=== PATIENT | male | born 1940 | race African-American/Black ===

== ENCOUNTER 2024-12-27 10:53 | Inpatient (IN) | payer MEDICARE, MEDICAID ==
[~2024-12-27] VITALS: Ht 170.2 cm; Wt 57.2 kg
[2024-12-27 10:57] VITALS: O2SAT 100
[2024-12-27] MEDS: ONDANSETRON 4MG ODT PO ONE (12:46)
[2024-12-27] MEDS: FAMOTIDINE 20MG TABLET PO ONE (12:46)
[2024-12-27] MEDS: HYDROCODONE/ACETAMINOPHEN 5/325MG TABLET PO ONE (12:46)
[2024-12-27 13:26] LABS: BASOPHILS % 0.2 % (0.0-2.0); EOSINOPHILS % 0.1 % (0.0-5.0); HEMATOCRIT. 50.8 % (42.0-52.0); HEMOGLOBIN. 16.3 g/dL (14.0-18.0); LYMPHOCYTES % 9.0 % (20.0-50.0); MEAN PLATELET VOLUME 9.0 fl (7.4-10.4); MONOCYTES % 8.9 % (2.0-8.0); NEUTROPHILS % 81.8 % (40.0-76.0); PLATELET 241 x1000/uL (130-400); RED BLOOD CELL COUNT 5.96 mill/uL (4.7-6.1); RED CELL DISTRIBUTION WIDTH 14.7 % (11.6-14.6)
[2024-12-27 13:39] LABS: INR 1.0
[2024-12-27 13:41] LABS: TROPONIN I HIGH SENSITIVITY 39 ng/L (3.0-53)
[2024-12-27 13:43] LABS: CREATININE 1.5 mg/dL (0.6-1.3)
[2024-12-27 13:44] LABS: UREA NITROGEN BLOOD 19 mg/dL (9-23)
[2024-12-27 13:45] LABS: ASPARTATE AMINOTRANSFERASE 19 IU/L (<34)
[2024-12-27 13:46] LABS: BILIRUBIN DIRECT 0.2 mg/dL (<=3.0); BILIRUBIN TOTAL 0.6 mg/dL (0.1-1.0); PROTEIN TOTAL 8.2 g/dL (6.0-8.3)
[2024-12-27] MEDS: SODIUM CHLORIDE 0.9% 1,000 ML IV ONE (14:15)
[2024-12-27 15:05] LABS: CLARITY URINE CLEAR (CLEAR); COLOR URINE YELLOW (YELLOW); GLUCOSE URINE NEGATIVE (NEGATIVE); KETONES URINE NEGATIVE (NEGATIVE); LEUKOCYTE ESTERASE URINE TRACE (NEGATIVE); NITRITE URINE NEGATIVE (NEGATIVE); OCCULT BLOOD URINE NEGATIVE (NEGATIVE); PH URINE 6.0 (4.5-8.0); PROTEIN URINE 1+ (NEGATIVE); SPECIFIC GRAVITY URINE 1.022 (1.005-1.030); UROBILINOGEN URINE 1.0 E.U./dL (0.2-1.0)
[2024-12-27 15:21] LABS: *AMPHETAMINES SCREEN URINE NEGATIVE (NEGATIVE); *BARBITURATES SCREEN URINE NEGATIVE (NEGATIVE); *BENZODIAZEPINES SCREEN URINE NEGATIVE (NEGATIVE); *COCAINE SCREEN URINE NEGATIVE (NEGATIVE)
[2024-12-27 15:22] LABS: CANNABINOID URINE SCREEN NEGATIVE (NEGATIVE); ECSTASY MDMA SCREEN URINE NEGATIVE (NEGATIVE); METHADONE URINE SCREEN NEGATIVE (NEGATIVE); OPIATES URINE SCREEN NEGATIVE (NEGATIVE); PHENCYCLIDINE URINE SCREEN NEGATIVE (NEGATIVE)
[2024-12-27 15:37] LABS: BACTERIA URINE NONE SEEN; HYALINE CASTS URINE 0-5 /lpf; MUCUS URINE TRACE /lpf (NONE/TRACE); RBC URINE NONE SEEN /hpf (0-2); SQUAMOUS EPITHELIAL CELL URINE RARE /lpf (RARE/1+)
[2024-12-27 20:00] VITALS: BP 145/91; PULSE 59; RESP 19; TEMP 36.2; O2SAT 97
[2024-12-27] MEDS ORDERED: IPRATROPIUM/ALBUTEROL 0.5-3(2.5)MG/3ML NEB HHN PRN (20:00)
[2024-12-27] MEDS ORDERED: DOCUSATE SODIUM 100MG CAPSULE PO PRN (20:00)
[2024-12-27] MEDS ORDERED: ACETAMINOPHEN 325MG TABLET PO PRN (20:00)
[2024-12-27] MEDS: SODIUM CHLORIDE 0.9% 1,000 ML IV SCH (21:40)
[2024-12-27] MEDS: ACETAMINOPHEN 325MG TABLET PO PRN (21:46)
[2024-12-27 22:00] VITALS: BP 145/91; PULSE 59; RESP 19; TEMP 36.1956
[2024-12-28] VITALS: BP 127/75; PULSE 59; RESP 19; TEMP 36.1; O2SAT 100
[2024-12-28 04:00] VITALS: BP 97/61; PULSE 52; RESP 19; TEMP 36.5; O2SAT 100
[2024-12-28 07:02] LABS: CREATININE 1.4 mg/dL (0.6-1.3)
[2024-12-28 07:03] LABS: UREA NITROGEN BLOOD 25.0 mg/dL (9-23)
[2024-12-28 07:06] LABS: BASOPHILS % 0.5 % (0.0-2.0); EOSINOPHILS % 0.4 % (0.0-5.0); HEMATOCRIT. 44.2 % (42.0-52.0); HEMOGLOBIN. 14.1 g/dL (14.0-18.0); LYMPHOCYTES % 16.2 % (20.0-50.0); MEAN PLATELET VOLUME 8.8 fl (7.4-10.4); MONOCYTES % 13.9 % (2.0-8.0); NEUTROPHILS % 69.0 % (40.0-76.0); PLATELET 179 x1000/uL (130-400); RED BLOOD CELL COUNT 5.13 mill/uL (4.7-6.1); RED CELL DISTRIBUTION WIDTH 15.0 % (11.6-14.6)
[2024-12-28 08:00] VITALS: BP_SYST 123; BP_SYST 127; BP_DIAS 69; BP_DIAS 71; PULSE 51; PULSE 52; RESP 18; TEMP 36.1; O2SAT 98
[2024-12-28] MEDS: ENOXAPARIN 30MG/0.3ML SYR SUBCUT SCH (11:20)
[2024-12-28 12:00] VITALS: BP 127/71; PULSE 51; RESP 18; TEMP 36.6; O2SAT 99
[2024-12-28] MEDS ORDERED: MORPHINE SULFATE 4 MG/ML INJ (FOR IV/IM USE) IV PRN (13:30)
[2024-12-28] MEDS ORDERED: NALOXONE HCL 0.4MG/ML VIAL IV PRN (13:30)
[2024-12-28] MEDS: MORPHINE SULFATE 10 MG/ML INJ (NOT FOR IM USE) IV PRN (15:34)
[2024-12-28 16:00] VITALS: BP 135/68; PULSE 68; RESP 18; TEMP 36.4; O2SAT 95
[2024-12-28 20:00] VITALS: BP 130/81; PULSE 60; RESP 19; TEMP 37.6; O2SAT 95
[2024-12-29] VITALS: BP 128/78; PULSE 59; RESP 19; TEMP 36.7; O2SAT 95
[2024-12-29 04:00] VITALS: BP 136/79; PULSE 56; RESP 19; TEMP 36.9; O2SAT 96
[2024-12-29 07:23] LABS: CREATININE 1.1 mg/dL (0.6-1.3); UREA NITROGEN BLOOD 16 mg/dL (9-23)
[2024-12-29] MEDS ORDERED: HYDR25TA MT (07:49)
[2024-12-29] MEDS ORDERED: AMLO10TA80 MT (07:49)
[2024-12-29] MEDS ORDERED: ASPI-1497 MT (07:49)
[2024-12-29] MEDS ORDERED: TAMS-54 MT (07:49)
[2024-12-29 08:00] VITALS: BP 123/74; PULSE 51; RESP 17; TEMP 36.3; O2SAT 95
[2024-12-29] MEDS: DEXT 5%/0.9% NACL 1,000 ML IV SCH (09:13)
[2024-12-29] MEDS: TAMSULOSIN HCL 0.4MG SR CAPSULE PO SCH (10:30)
[2024-12-29] MEDS: DEXTROSE 50% WATER 50ML SYRINGE IV PRN (11:57)
[2024-12-29 12:00] VITALS: BP 135/81; PULSE 50; RESP 18; TEMP 35.8; O2SAT 98
[2024-12-29] MEDS: KCL 20MEQ/100ML PREMIX 100 ML IV SCH (13:28)
[2024-12-29 16:00] VITALS: BP 109/82; PULSE 49; RESP 16; TEMP 36; O2SAT 96
[2024-12-29 20:00] VITALS: BP 164/91; PULSE 46; RESP 17; TEMP 36.6; O2SAT 98
[2024-12-30] VITALS: BP 140/90; PULSE 66; RESP 18; TEMP 36.6; O2SAT 99
[2024-12-30 04:00] VITALS: BP 133/83; PULSE 58; RESP 18; TEMP 36.4; O2SAT 98
[2024-12-30 07:39] LABS: HEMATOCRIT. 43.0 % (42.0-52.0); HEMOGLOBIN. 13.9 g/dL (14.0-18.0); MEAN PLATELET VOLUME 8.9 fl (7.4-10.4); PLATELET 179 x1000/uL (130-400); RED BLOOD CELL COUNT 5.06 mill/uL (4.7-6.1); RED CELL DISTRIBUTION WIDTH 14.4 % (11.6-14.6)
[2024-12-30 07:52] LABS: CREATININE 1.0 mg/dL (0.6-1.3)
[2024-12-30 07:54] LABS: UREA NITROGEN BLOOD 12 mg/dL (9-23)
[2024-12-30 07:56] LABS: PHOSPHORUS 1.4 mg/dL (2.5-4.9)
[2024-12-30 08:00] VITALS: BP 125/78; PULSE 60; RESP 17; TEMP 36.2; O2SAT 96
[2024-12-30 12:00] VITALS: BP 140/103; PULSE 76; RESP 17; TEMP 36.2; O2SAT 96
[2024-12-30 16:00] VITALS: BP 142/83; PULSE 78; RESP 16; TEMP 36.2; O2SAT 95
[2024-12-30] MEDS: SODIUM CHLORIDE 0.9% 1,000 ML IV SCH (17:05)
[2024-12-30 19:21] LABS: EOSINOPHILS % MANUAL 1.0 % (0.0-5.0); LYMPHOCYTES % MANUAL 18.0 % (20.0-50.0); MONOCYTES % MANUAL 14.0 % (2.0-8.0); NEUTROPHILS % MANUAL 67.0 % (45.0-75.0); PLATELET ESTIMATE NORMAL
[2024-12-30 20:00] VITALS: BP 124/81; PULSE 83; RESP 18; TEMP 36.6; O2SAT 98
[2024-12-30] MEDS: ONDANSETRON HCL 4MG/2ML INJ IV PRN (21:43)
[2024-12-31] VITALS: BP 120/81; PULSE 88; RESP 19; TEMP 37; O2SAT 100
[2024-12-31 04:00] VITALS: BP 114/76; PULSE 109; RESP 18; TEMP 36.7; O2SAT 100
[2024-12-31 08:00] VITALS: BP 96/74; PULSE 117; RESP 16; TEMP 35.9; O2SAT 96
[2024-12-31] MEDS: LACTULOSE 20G/30ML UDC PO NR (08:58)
[2024-12-31] MEDS: SODIUM CHLORIDE 0.9% 500 ML IV ONE (14:35)
[2024-12-31] MEDS: DEXT 5%/0.45% NACL 1000ML 1,000 ML IV SCH (14:37)
[2024-12-31 15:34] LABS: BG BASE EXCESS 7.7 mmol/L (-2.0-3.0); BG CARBOXYHEMOGLOBIN 1.3 % (0.5-1.5); BG DEOXYHEMOGLOBIN 5.2 % (0.0-5.0); BG FRACTION INSPIRED OXYGEN 21; BG HCO3 ACT 30.9 mmol/L (21.0-28.0); BG METHEMOGLOBIN 0.3 % (0.5-1.5); BG OXYGEN SATURATION 94.7 % (94.0-98.0); BG OXYHEMOGLOBIN 93.2 % (94.0-98.0); BG PCO2 38.4 mmHg (35.0-48.0); BG PH 7.524 (7.350-7.450); BG PO2 70.9 mmHg (83.0-108.0); BG SAMPLE SITE LEFT BRACHIAL; BG TOTAL HEMOGLOBIN 15.8 g/dL (13.5-17.5); BG VENT MODE ROOM AIR
[2024-12-31] MEDS: MORPHINE SULFATE 10 MG/ML INJ (NOT FOR IM USE) IV PRN (15:56)
[2024-12-31] MEDS: METOCLOPRAMIDE HCL 10MG/2ML VIAL IV PRN (19:56)
[2024-12-31 20:00] VITALS: BP 117/65; PULSE 79; RESP 17; TEMP 37.3; O2SAT 97
[2024-12-31 22:25] LABS: BASOPHILS % 0.3 % (0.0-2.0); EOSINOPHILS % 0.1 % (0.0-5.0); HEMATOCRIT. 44.4 % (42.0-52.0); HEMOGLOBIN. 14.4 g/dL (14.0-18.0); LYMPHOCYTES % 10.4 % (20.0-50.0); MEAN PLATELET VOLUME 9.5 fl (7.4-10.4); MONOCYTES % 10.2 % (2.0-8.0); NEUTROPHILS % 79.0 % (40.0-76.0); PLATELET 170 x1000/uL (130-400); RED BLOOD CELL COUNT 5.23 mill/uL (4.7-6.1); RED CELL DISTRIBUTION WIDTH 14.5 % (11.6-14.6)
[2024-12-31 22:50] LABS: CREATININE 1.2 mg/dL (0.6-1.3); UREA NITROGEN BLOOD 20 mg/dL (9-23)
[2025-01-01] VITALS: BP 117/63; PULSE 78; RESP 17; TEMP 36.7; O2SAT 100
[2025-01-01 04:00] VITALS: BP 113/65; PULSE 77; RESP 17; TEMP 35.8; O2SAT 95
[2025-01-01 07:21] LABS: HEMATOCRIT. 47.0 % (42.0-52.0); HEMOGLOBIN. 15.0 g/dL (14.0-18.0); MEAN PLATELET VOLUME 9.6 fl (7.4-10.4); PLATELET 188 x1000/uL (130-400); RED BLOOD CELL COUNT 5.55 mill/uL (4.7-6.1); RED CELL DISTRIBUTION WIDTH 14.6 % (11.6-14.6)
[2025-01-01 07:35] LABS: INR 1.0
[2025-01-01 07:48] LABS: CREATININE 1.2 mg/dL (0.6-1.3); UREA NITROGEN BLOOD 22 mg/dL (9-23)
[2025-01-01 07:50] LABS: ASPARTATE AMINOTRANSFERASE 20 IU/L (<34)
[2025-01-01 07:51] LABS: BILIRUBIN DIRECT 0.3 mg/dL (<=3.0); BILIRUBIN TOTAL 0.6 mg/dL (0.1-1.0); PHOSPHORUS 2.5 mg/dL (2.5-4.9); PROTEIN TOTAL 6.3 g/dL (6.0-8.3)
[2025-01-01 08:00] VITALS: BP 126/77; PULSE 83; RESP 18; TEMP 36.5; O2SAT 95
[2025-01-01] MEDS: DIATR MEGLU/DIATRIZOATE SOLN 120ML ONE (08:54)
[2025-01-01 11:19] LABS: BAND% 6.0 % (1.0-6.0); EOSINOPHILS % MANUAL 1.0 % (0.0-5.0); LYMPHOCYTES % MANUAL 14.0 % (20.0-50.0); MONOCYTES % MANUAL 11.0 % (2.0-8.0); NEUTROPHILS % MANUAL 68.0 % (45.0-75.0)
[2025-01-01 11:20] LABS: PLATELET ESTIMATE NORMAL
[2025-01-01] MEDS: KCL 20MEQ/100ML PREMIX 100 ML IV SCH ×2 (11:30→17:09)
[2025-01-01 12:00] VITALS: BP 120/70; PULSE 80; RESP 18; TEMP 35.8; O2SAT 96
[2025-01-01 16:00] VITALS: BP 111/64; PULSE 86; RESP 18; TEMP 35.9; O2SAT 95
[2025-01-01 20:00] VITALS: BP 124/76; PULSE 78; RESP 14; TEMP 36.2; O2SAT 98
[2025-01-02] VITALS: BP 105/75; PULSE 99; RESP 16; TEMP 36.6; O2SAT 91
[2025-01-02] MEDS ORDERED: BUPIVACAINE HCL/PF 0.5% (5MG/ML) 10ML ONE (07:00)
[2025-01-02 08:00] VITALS: BP 120/75; PULSE 60; RESP 18; TEMP 36.2; O2SAT 99
[2025-01-02 08:08] LABS: HEMATOCRIT. 48.5 % (42.0-52.0); HEMOGLOBIN. 15.8 g/dL (14.0-18.0); MEAN PLATELET VOLUME 9.0 fl (7.4-10.4); PLATELET 180 x1000/uL (130-400); RED BLOOD CELL COUNT 5.67 mill/uL (4.7-6.1); RED CELL DISTRIBUTION WIDTH 14.5 % (11.6-14.6)
[2025-01-02 08:17] LABS: UREA NITROGEN BLOOD 25 mg/dL (9-23)
[2025-01-02 08:32] LABS: CREATININE 1.8 mg/dL (0.6-1.3)
[2025-01-02] MEDS ORDERED: SUCCINYLCHOLINE CHLORIDE 200MG/10ML IV ONE (10:58)
[2025-01-02] MEDS ORDERED: ROCURONIUM BROMIDE 10MG/ML VIAL 5ML IV ONE ×2 (10:58→10:59)
[2025-01-02] MEDS ORDERED: PROPOFOL 200MG/20ML VIAL IV ONE (10:59)
[2025-01-02] MEDS ORDERED: FENTANYL CITRATE/PF 50MCG/ML 2ML VIAL ONE ×2 (10:59→12:25)
[2025-01-02] MEDS ORDERED: LIDOCAINE HCL 1% 10 MG/ML 10ML VIAL ONE (11:01)
[2025-01-02] MEDS ORDERED: EPHEDRINE SULFATE 50MG/ML VIAL ONE (11:22)
[2025-01-02] MEDS ORDERED: ONDANSETRON HCL 4MG/2ML INJ IV PRN ×2 (11:30→12:45)
[2025-01-02] MEDS ORDERED: CEFAZOLIN SODIUM 1000MG/VIAL ONE (11:37)
[2025-01-02] MEDS ORDERED: DEXAMETHASONE 4MG/ML 1ML VIAL ONE (11:46)
[2025-01-02] MEDS ORDERED: ONDANSETRON HCL 4MG/2ML INJ ONE (11:46)
[2025-01-02 11:48] LABS: BAND% 7.0 % (1.0-6.0); LYMPHOCYTES % MANUAL 14.0 % (20.0-50.0); MONOCYTES % MANUAL 18.0 % (2.0-8.0); NEUTROPHILS % MANUAL 61.0 % (45.0-75.0); PLATELET ESTIMATE NORMAL
[2025-01-02] MEDS ORDERED: BUPIVACAINE HCL/PF 0.25% (2.5MG/ML) 10ML ONE (12:36)
[2025-01-02] MEDS ORDERED: FENTANYL CITRATE/PF 50MCG/ML 2ML VIAL IV PRN (12:45)
[2025-01-02] MEDS: HYDROMORPHONE HCL/PF 1MG/ML INJ IV PRN (14:56)
[2025-01-02 16:00] VITALS: BP 118/69; PULSE 63; RESP 18; TEMP 36.4; O2SAT 100
[2025-01-02] MEDS: DEXT 5%/0.45% NACL KCL 20MEQ/L 1,000 ML IV SCH (16:00)
[2025-01-02 20:00] VITALS: BP 118/77; PULSE 72; RESP 19; TEMP 36.4; O2SAT 99
[2025-01-02] MEDS: FAMOTIDINE 20MG/2ML VIAL IV SCH (20:29)
[2025-01-02] MEDS: MORPHINE SULFATE 10 MG/ML INJ (NOT FOR IM USE) IV PRN (20:42)
[2025-01-03] VITALS: BP 122/78; PULSE 83; RESP 20; TEMP 36.8; O2SAT 96
[2025-01-03 04:00] VITALS: BP 123/79; PULSE 83; RESP 19; TEMP 36.1; O2SAT 99
[2025-01-03 08:00] VITALS: BP 115/70; PULSE 79; RESP 20; TEMP 36.4; O2SAT 95
[2025-01-03 09:11] LABS: MEAN PLATELET VOLUME 10.2 fl (7.4-10.4); PLATELET 134 x1000/uL (130-400); RED BLOOD CELL COUNT 4.28 mill/uL (4.7-6.1); RED CELL DISTRIBUTION WIDTH 16.4 % (11.6-14.6)
[2025-01-03 09:18] LABS: HEMATOCRIT. 39.2 % (42.0-52.0); HEMOGLOBIN. 11.7 g/dL (14.0-18.0)
[2025-01-03 12:00] VITALS: BP 132/94; PULSE 85; RESP 20; TEMP 36.3; O2SAT 95
[2025-01-03 14:05] LABS: BAND% 16.0 % (1.0-6.0); LYMPHOCYTES % MANUAL 11.0 % (20.0-50.0); MONOCYTES % MANUAL 10.0 % (2.0-8.0); NEUTROPHILS % MANUAL 63.0 % (45.0-75.0); PLATELET ESTIMATE NORMAL
[2025-01-03 14:22] LABS: CREATININE 1.5 mg/dL (0.6-1.3)
[2025-01-03 14:23] LABS: UREA NITROGEN BLOOD 26.0 mg/dL (9-23)
[2025-01-03 16:00] VITALS: BP 115/70; PULSE 83; RESP 20; TEMP 36.4; O2SAT 96
[2025-01-03 20:00] VITALS: BP 124/79; PULSE 77; RESP 20; TEMP 36.2; O2SAT 97
[2025-01-04] VITALS (7 sets, daily range): BP systolic 114–142; BP diastolic 74–79; PULSE 75–89; RESP 18–20; TEMP 35.9–36.4; O2SAT 90–100
[2025-01-04] MEDS: MORPHINE SULFATE 10 MG/ML INJ (NOT FOR IM USE) IV PRN (01:52)
[2025-01-04 19:26] LABS: HEMATOCRIT. 44.2 % (42.0-52.0); HEMOGLOBIN. 13.9 g/dL (14.0-18.0); MEAN PLATELET VOLUME 9.7 fl (7.4-10.4); PLATELET 167 x1000/uL (130-400); RED BLOOD CELL COUNT 5.12 mill/uL (4.7-6.1); RED CELL DISTRIBUTION WIDTH 14.7 % (11.6-14.6)
[2025-01-04 19:40] LABS: EOSINOPHILS % MANUAL 1.0 % (0.0-5.0); LYMPHOCYTES % MANUAL 10.0 % (20.0-50.0); MONOCYTES % MANUAL 8.0 % (2.0-8.0); NEUTROPHILS % MANUAL 81.0 % (45.0-75.0)
[2025-01-04 19:41] LABS: PLATELET ESTIMATE NORMAL
[2025-01-05] VITALS: BP 117/82; PULSE 89; RESP 19; TEMP 36.3; O2SAT 100
[2025-01-05 04:00] VITALS: BP 127/80; PULSE 89; RESP 20; TEMP 36.2; O2SAT 99
[2025-01-05 08:00] VITALS: BP 118/77; PULSE 85; RESP 20; TEMP 36.1; O2SAT 100
[2025-01-05 12:00] VITALS: BP 117/87; PULSE 87; RESP 19; TEMP 36.5; O2SAT 100
[2025-01-05 16:00] VITALS: BP 127/93; PULSE 89; RESP 17; TEMP 36.1; O2SAT 98
[2025-01-05 20:00] VITALS: BP 129/77; PULSE 74; RESP 18; TEMP 36.5; O2SAT 97
[2025-01-06] VITALS: BP 130/78; PULSE 75; RESP 19; TEMP 36.4; O2SAT 98
[2025-01-06 04:00] VITALS: BP 128/79; PULSE 76; RESP 20; TEMP 36.7; O2SAT 96
[2025-01-06 07:32] LABS: HEMATOCRIT. 37.7 % (42.0-52.0); HEMOGLOBIN. 12.2 g/dL (14.0-18.0); MEAN PLATELET VOLUME 9.3 fl (7.4-10.4); PLATELET 194 x1000/uL (130-400); RED BLOOD CELL COUNT 4.48 mill/uL (4.7-6.1); RED CELL DISTRIBUTION WIDTH 14.3 % (11.6-14.6)
[2025-01-06 07:48] LABS: CREATININE 0.9 mg/dL (0.6-1.3); UREA NITROGEN BLOOD 18 mg/dL (9-23)
[2025-01-06 08:00] VITALS: BP 132/80; PULSE 69; RESP 20; TEMP 36.7; O2SAT 100
[2025-01-06 12:00] VITALS: BP 123/75; PULSE 77; RESP 16; TEMP 36.6; O2SAT 100
[2025-01-06 16:00] VITALS: BP 139/80; PULSE 68; RESP 20; TEMP 36.7; O2SAT 95
[2025-01-06 17:19] LABS: LYMPHOCYTES % MANUAL 15.0 % (20.0-50.0); MONOCYTES % MANUAL 6.0 % (2.0-8.0); NEUTROPHILS % MANUAL 79.0 % (45.0-75.0); PLATELET ESTIMATE NORMAL
[2025-01-06 20:00] VITALS: BP 143/86; PULSE 72; RESP 18; TEMP 36.6; O2SAT 93
[2025-01-07] VITALS: BP 163/79; PULSE 66; RESP 18; TEMP 37.3; O2SAT 96
[2025-01-07 04:00] VITALS: BP 150/83; PULSE 68; RESP 18; TEMP 36.6; O2SAT 98
[2025-01-07 08:00] VITALS: BP 142/85; PULSE 57; RESP 15; TEMP 36.4; O2SAT 97
[2025-01-07 12:00] VITALS: BP 141/85; PULSE 64; RESP 17; TEMP 36.8; O2SAT 97
[2025-01-07] MEDS: MORPHINE SULFATE 10 MG/ML INJ (NOT FOR IM USE) IV PRN (15:44)
[2025-01-07 16:00] VITALS: BP 132/67; PULSE 67; RESP 18; TEMP 36.3; O2SAT 93
[2025-01-07 20:00] VITALS: BP 138/79; PULSE 62; RESP 17; TEMP 37; O2SAT 100
[2025-01-08] VITALS: BP 159/89; PULSE 69; RESP 17; TEMP 37.3; O2SAT 97
[2025-01-08 04:00] VITALS: BP 146/89; PULSE 69; RESP 17; TEMP 36.5; O2SAT 98
[2025-01-08 07:54] LABS: CREATININE 0.9 mg/dL (0.6-1.3); UREA NITROGEN BLOOD 14 mg/dL (9-23)
[2025-01-08 07:58] LABS: HEMATOCRIT. 37.3 % (42.0-52.0); HEMOGLOBIN. 12.4 g/dL (14.0-18.0); MEAN PLATELET VOLUME 9.0 fl (7.4-10.4); PLATELET 237 x1000/uL (130-400); RED BLOOD CELL COUNT 4.42 mill/uL (4.7-6.1); RED CELL DISTRIBUTION WIDTH 14.0 % (11.6-14.6)
[2025-01-08] MEDS ORDERED: NALOXONE HCL 0.4MG/ML VIAL IV PRN (09:45)
[2025-01-08] MEDS: MORPHINE SULFATE 10 MG/ML INJ (NOT FOR IM USE) IV PRN (09:46)
[2025-01-08 16:31] LABS: EOSINOPHILS % MANUAL 1.0 % (0.0-5.0); LYMPHOCYTES % MANUAL 17.0 % (20.0-50.0); MONOCYTES % MANUAL 19.0 % (2.0-8.0); NEUTROPHILS % MANUAL 63.0 % (45.0-75.0); PLATELET ESTIMATE NORMAL
[2025-01-08 20:00] VITALS: BP 147/81; PULSE 73; RESP 18; TEMP 36.3; O2SAT 92
[2025-01-09] VITALS: BP 143/85; PULSE 69; RESP 18; TEMP 36.3; O2SAT 99
[2025-01-09 04:00] VITALS: BP 145/88; PULSE 77; RESP 18; TEMP 36.6; O2SAT 95
[2025-01-09 08:00] VITALS: BP 139/74; PULSE 65; RESP 16; TEMP 36.5; O2SAT 100
[2025-01-09 12:00] VITALS: BP 139/82; PULSE 69; RESP 16; TEMP 36.3; O2SAT 99
[2025-01-09 16:00] VITALS: BP 116/77; PULSE 68; RESP 18; TEMP 36.6; O2SAT 95
[2025-01-09 20:00] VITALS: BP 135/81; PULSE 79; RESP 19; TEMP 37.2; O2SAT 94
[2025-01-09] MEDS: ENOXAPARIN 40MG/0.4ML SYR SUBCUT SCH (20:32)
[2025-01-10] VITALS: BP 140/93; PULSE 87; RESP 18; TEMP 37.1; O2SAT 96
[2025-01-10 04:00] VITALS: BP 120/85; PULSE 87; RESP 18; TEMP 37.4; O2SAT 100
[2025-01-10 08:00] VITALS: BP 133/84; PULSE 97; RESP 16; TEMP 36.6; O2SAT 95
[2025-01-10 12:00] VITALS: BP 129/97; PULSE 94; RESP 16; TEMP 36.4; O2SAT 97
[2025-01-10 16:00] VITALS: BP 142/93; PULSE 98; RESP 17; TEMP 36.7; O2SAT 97
[2025-01-10 20:00] VITALS: BP 114/71; PULSE 88; RESP 19; TEMP 36.7; O2SAT 100
[2025-01-11] VITALS: BP 125/91; PULSE 96; RESP 18; TEMP 36.9; O2SAT 95; O2SAT 97
[2025-01-11 04:00] VITALS: BP 126/92; PULSE 97; RESP 18; TEMP 37.1; O2SAT 95
[2025-01-11 08:00] VITALS: BP 119/87; PULSE 84; RESP 17; TEMP 36.1; O2SAT 2
[2025-01-11 08:38] LABS: BASOPHILS % 0.4 % (0.0-2.0); EOSINOPHILS % 0.7 % (0.0-5.0); HEMATOCRIT. 40.2 % (42.0-52.0); HEMOGLOBIN. 13.0 g/dL (14.0-18.0); LYMPHOCYTES % 10.4 % (20.0-50.0); MEAN PLATELET VOLUME 8.5 fl (7.4-10.4); MONOCYTES % 12.2 % (2.0-8.0); NEUTROPHILS % 76.3 % (40.0-76.0); PLATELET 271 x1000/uL (130-400); RED BLOOD CELL COUNT 4.70 mill/uL (4.7-6.1); RED CELL DISTRIBUTION WIDTH 14.0 % (11.6-14.6)
[2025-01-11 08:48] LABS: CREATININE 0.9 mg/dL (0.6-1.3); UREA NITROGEN BLOOD 14 mg/dL (9-23)
[2025-01-11 12:00] VITALS: BP 126/91; PULSE 88; RESP 17; TEMP 35.8; O2SAT 97
[2025-01-11 16:00] VITALS: BP 142/95; PULSE 89; RESP 17; TEMP 36.4; O2SAT 97
[2025-01-11 19:19] VITALS: BP 142/95; PULSE 89; RESP 17; TEMP 97.5
== END 2025-01-11 19:13 | DRG 335 ==
LOC: ER 10:53 → 6WST 15:32 → EDBEDREQTM 15:36 → EDBEDREQ 15:36 → EDBEDREQSVC 15:36 → 7EST 12-31 11:40
PROVIDERS: ADMIT Internal Medicine; ATTEND Internal Medicine
PROC: 0DN80ZZ Release Small Intestine, Open Approach (ICD-10-PCS; principal; 2025-01-02)
DX: K56.50 Intestinal adhesions [bands], unspecified as to partial versus complete obstruction (principal); G82.50 Quadriplegia, unspecified; G93.41 Metabolic encephalopathy; G72.81 Critical illness myopathy; N17.9 Acute kidney failure, unspecified; I10 Essential (primary) hypertension; G62.9 Polyneuropathy, unspecified; I95.9 Hypotension, unspecified; D64.9 Anemia, unspecified; N40.0 Benign prostatic hyperplasia without lower urinary tract symptoms; R53.81 Other malaise; Z93.3 Colostomy status
CPT/HCPCS: 36415; 36600; 71045; 74018; 74176; 74250; 80048; 80076; 80305; 80320; 81003; 82375; 82805; 82962; 83605; 83735; 83880; 84100; 84145; 84484; 85025; 85379; 86850; 86900; 93005; 93970; 97162; 97166; 97530; 97535; 99291; A4606; J0330; J0665; J0690; J1100; J1171; J1308; J1650; J2003; J2270; J2405; J2704; J2765; J3010; J3480; J3490; J7030; J7042; Q0162; Q9963; G0480

== ENCOUNTER 2025-01-11 19:32 | Inpatient (IN) | payer MEDICARE, MEDICAID ==
[~2025-01-11] VITALS: Ht 170.2 cm; Wt 57.6 kg
[~2025-01-11 19:32] MED LIST: AMLO10TA80 MT; ASPI-1497 MT; HYDR25TA MT; TAMS-54 MT
[2025-01-11 21:00] VITALS: BP 125/92; PULSE 95; RESP 20; TEMP 36.6404
[2025-01-12] MEDS ORDERED: DEXTROSE 50% WATER 50ML SYRINGE IV PRN (00:45)
[2025-01-12] MEDS ORDERED: DOCUSATE SODIUM 100MG CAPSULE PO PRN (01:00)
[2025-01-12] MEDS ORDERED: ACETAMINOPHEN 325MG TABLET PO PRN (01:00)
[2025-01-12] MEDS ORDERED: METOCLOPRAMIDE HCL 10MG/2ML VIAL IV SCH (01:00)
[2025-01-12] MEDS ORDERED: ONDANSETRON HCL 4MG/2ML INJ IV PRN (01:00)
[2025-01-12] MEDS ORDERED: NALOXONE HCL 0.4MG/ML 1ML VIAL IV PRN (01:00)
[2025-01-12] MEDS: DEXT 5%/0.45% NACL KCL 20MEQ/L 1,000 ML IV SCH (02:42)
[2025-01-12] MEDS: MORPHINE SULFATE 4 MG/ML INJ (FOR IV/IM USE) IV PRN (04:19)
[2025-01-12 07:58] LABS: BASOPHILS % 0.5 % (0.0-2.0); EOSINOPHILS % 1.0 % (0.0-5.0); HEMATOCRIT. 37.1 % (42.0-52.0); HEMOGLOBIN. 11.9 g/dL (14.0-18.0); LYMPHOCYTES % 16.5 % (20.0-50.0); MEAN PLATELET VOLUME 8.3 fl (7.4-10.4); MONOCYTES % 12.3 % (2.0-8.0); NEUTROPHILS % 69.7 % (40.0-76.0); PLATELET 266 x1000/uL (130-400); RED BLOOD CELL COUNT 4.37 mill/uL (4.7-6.1); RED CELL DISTRIBUTION WIDTH 14.0 % (11.6-14.6)
[2025-01-12 08:44] LABS: CREATININE 0.8 mg/dL (0.6-1.3); UREA NITROGEN BLOOD 12 mg/dL (9-23)
[2025-01-12 08:45] LABS: ASPARTATE AMINOTRANSFERASE 31 IU/L (<34)
[2025-01-12 08:46] LABS: BILIRUBIN TOTAL 0.3 mg/dL (0.1-1.0); PROTEIN TOTAL 5.2 g/dL (6.0-8.3)
[2025-01-12] MEDS: TAMSULOSIN HCL 0.4MG SR CAPSULE PO SCH (10:01)
[2025-01-12] MEDS: ACETAMINOPHEN 325MG TABLET PO PRN (16:46)
[2025-01-12] MEDS: AMLODIPINE 10MG TABLET PO SCH (16:53)
[2025-01-12] MEDS: HYDROCHLOROTHIAZIDE 25MG TABLET PO SCH (16:53)
[2025-01-12] MEDS: ASPIRIN 81MG TABLET PO SCH (16:53)
[2025-01-12 20:00] VITALS: BP 123/87; PULSE 83; RESP 19; TEMP 36.4; O2SAT 93
[2025-01-12] MEDS: ENOXAPARIN 40MG/0.4ML SYR SUBCUT SCH (21:00)
[2025-01-12] MEDS: FAMOTIDINE 20MG/2ML VIAL IV SCH (21:33)
[2025-01-13 08:00] VITALS: BP 126/77; PULSE 65; RESP 16; TEMP 36.1; O2SAT 97
[2025-01-13 09:36] LABS: FOLIC ACID (FOLATE) SERUM > 20.00 ng/mL (>5.38)
[2025-01-13 09:37] LABS: VITAMIN B12 SERUM 1163 pg/mL (211-911)
[2025-01-13 09:38] LABS: CREATININE 0.8 mg/dL (0.6-1.3); UREA NITROGEN BLOOD 9 mg/dL (9-23)
[2025-01-13 09:39] LABS: PROTEIN TOTAL 5.7 g/dL (6.0-8.3)
[2025-01-13 09:40] LABS: ASPARTATE AMINOTRANSFERASE 38 IU/L (<34); BILIRUBIN TOTAL 0.3 mg/dL (0.1-1.0)
[2025-01-13] MEDS: SODIUM CHLORIDE 0.9% IV SCH (17:11)
[2025-01-13] MEDS: IRON SUCROSE COMPLEX IV SCH (17:11)
[2025-01-13] MEDS: FERROUS SULFATE 325MG TABLET PO SCH (18:14)
[2025-01-13 20:00] VITALS: BP 135/84; PULSE 109; RESP 19; TEMP 36.6; O2SAT 93
[2025-01-14 08:00] VITALS: BP 123/81; PULSE 93; RESP 18; TEMP 36.4; O2SAT 100
[2025-01-14] MEDS: ASCORBIC ACID 500 MG TABLET PO SCH (09:24)
[2025-01-14 20:00] VITALS: BP 124/87; PULSE 94; RESP 18; TEMP 36.7; O2SAT 94
[2025-01-15 06:34] LABS: CREATININE 1.0 mg/dL (0.6-1.3); UREA NITROGEN BLOOD 11 mg/dL (9-23)
[2025-01-15 06:52] LABS: BASOPHILS % 0.6 % (0.0-2.0); EOSINOPHILS % 0.2 % (0.0-5.0); HEMATOCRIT. 41.2 % (42.0-52.0); HEMOGLOBIN. 13.0 g/dL (14.0-18.0); LYMPHOCYTES % 11.6 % (20.0-50.0); MEAN PLATELET VOLUME 9.1 fl (7.4-10.4); MONOCYTES % 7.9 % (2.0-8.0); NEUTROPHILS % 79.7 % (40.0-76.0); PLATELET 323 x1000/uL (130-400); RED BLOOD CELL COUNT 4.87 mill/uL (4.7-6.1); RED CELL DISTRIBUTION WIDTH 14.3 % (11.6-14.6)
[2025-01-15] MEDS ORDERED: LIDOCAINE HCL 1% 10 MG/ML 10ML VIAL ONE (07:15)
[2025-01-15 08:00] VITALS: BP 116/78; PULSE 86; RESP 17; TEMP 36.5; O2SAT 99
[2025-01-15] MEDS: HYDROCODONE/ACETAMINOPHEN 5/325MG TABLET PO PRN (11:45)
[2025-01-15 20:00] VITALS: BP 122/80; PULSE 79; RESP 18; TEMP 36.9; O2SAT 92
[2025-01-15] MEDS: MIRTAZAPINE 15MG TABLET PO SCH (22:34)
[2025-01-16 08:00] VITALS: BP 119/72; PULSE 59; RESP 17; TEMP 36.5; O2SAT 100
[2025-01-16 20:00] VITALS: BP 114/69; PULSE 58; RESP 18; TEMP 36.7; O2SAT 90
[2025-01-17 08:00] VITALS: BP 105/68; PULSE 65; RESP 16; TEMP 36.5; O2SAT 99
[2025-01-17] MEDS ORDERED: NALOXONE HCL 0.4MG/ML VIAL IV PRN (17:15)
[2025-01-17 20:47] VITALS: BP 114/73; PULSE 74; RESP 17; TEMP 36.4; O2SAT 98
[2025-01-17] MEDS ORDERED: LOPERAMIDE 2MG/15ML UDC PO PRN (21:00)
[2025-01-18 08:00] VITALS: BP 135/55; PULSE 81; RESP 19; TEMP 36.4; O2SAT 97
[2025-01-18 20:00] VITALS: BP 132/85; PULSE 64; RESP 18; TEMP 36.6; O2SAT 98
[2025-01-19 08:00] VITALS: BP 120/85; PULSE 74; RESP 18; TEMP 36.3; O2SAT 97
[2025-01-19 13:26] LABS: BASOPHILS % 0.5 % (0.0-2.0); EOSINOPHILS % 0.9 % (0.0-5.0); HEMATOCRIT. 40.7 % (42.0-52.0); HEMOGLOBIN. 13.2 g/dL (14.0-18.0); LYMPHOCYTES % 13.6 % (20.0-50.0); MEAN PLATELET VOLUME 8.1 fl (7.4-10.4); MONOCYTES % 11.7 % (2.0-8.0); NEUTROPHILS % 73.3 % (40.0-76.0); PLATELET 290 x1000/uL (130-400); RED BLOOD CELL COUNT 4.84 mill/uL (4.7-6.1); RED CELL DISTRIBUTION WIDTH 14.6 % (11.6-14.6)
[2025-01-19 13:39] LABS: CREATININE 0.7 mg/dL (0.6-1.3); UREA NITROGEN BLOOD 11 mg/dL (9-23)
[2025-01-19 13:41] LABS: PHOSPHORUS 1.6 mg/dL (2.5-4.9)
[2025-01-19] MEDS: DEXT 5%/0.45% NACL 1000ML 1,000 ML IV SCH (19:45)
[2025-01-19 20:00] VITALS: BP 111/79; PULSE 94; RESP 19; TEMP 36.8; O2SAT 96
[2025-01-19] MEDS: HYDROCODONE/ACETAMINOPHEN 5/325MG TABLET PO PRN (20:22)
[2025-01-19] MEDS: MAGNESIUM 2 G PREMIX 50 ML IV SCH (21:54)
[2025-01-19] MEDS: SODIUM PHOSPHATE 30 MMOL in DEXT 5% WATER 490 ML IV SCH (22:00)
[2025-01-20 08:00] VITALS: BP 116/79; PULSE 80; RESP 16; TEMP 36.2; O2SAT 96
[2025-01-20 20:00] VITALS: BP 104/75; PULSE 69; RESP 18; TEMP 36.9; O2SAT 98
[2025-01-21 08:00] VITALS: BP 105/73; PULSE 78; RESP 18; TEMP 36.7; O2SAT 95
[2025-01-21 20:00] VITALS: BP 130/51; PULSE 103; RESP 18; TEMP 36.4; O2SAT 100
[2025-01-22 09:00] VITALS: PULSE 64
[2025-01-22 11:03] LABS: HEMATOCRIT. 38.0 % (42.0-52.0); HEMOGLOBIN. 12.4 g/dL (14.0-18.0); MEAN PLATELET VOLUME 8.0 fl (7.4-10.4); PLATELET 205 x1000/uL (130-400); RED BLOOD CELL COUNT 4.54 mill/uL (4.7-6.1); RED CELL DISTRIBUTION WIDTH 14.7 % (11.6-14.6)
[2025-01-22 11:25] LABS: CREATININE 0.7 mg/dL (0.6-1.3)
[2025-01-22 11:26] LABS: UREA NITROGEN BLOOD 10 mg/dL (9-23)
[2025-01-22 11:28] LABS: ASPARTATE AMINOTRANSFERASE 31 IU/L (<34); BILIRUBIN TOTAL 0.4 mg/dL (0.1-1.0); PHOSPHORUS 1.9 mg/dL (2.5-4.9); PROTEIN TOTAL 5.0 g/dL (6.0-8.3)
[2025-01-22] MEDS ORDERED: POTASSIUM CHLORIDE 20MEQ TABLET SR PO SCH (13:00)
[2025-01-22 17:24] LABS: EOSINOPHILS % MANUAL 1.0 % (0.0-5.0); LYMPHOCYTES % MANUAL 32.0 % (20.0-50.0); MONOCYTES % MANUAL 12.0 % (2.0-8.0); NEUTROPHILS % MANUAL 55.0 % (45.0-75.0); PLATELET ESTIMATE NORMAL
== END 2025-01-22 16:35 | disposition left against medical advice (07) | DRG 91 ==
PROVIDERS: ADMIT Physical Medicine & Rehabilitation Spinal Cord Injury Medicine; ATTEND Internal Medicine
PROC: 02HV33Z Insertion of Infusion Device into Superior Vena Cava, Percutaneous Approach (ICD-10-PCS; principal; 2025-01-15)
PROC: B548ZZA Ultrasonography of Superior Vena Cava, Guidance (ICD-10-PCS; 2025-01-15)
DX: G72.81 Critical illness myopathy (principal); G82.50 Quadriplegia, unspecified; G93.41 Metabolic encephalopathy; K56.50 Intestinal adhesions [bands], unspecified as to partial versus complete obstruction; K56.7 Ileus, unspecified; N17.9 Acute kidney failure, unspecified; K92.1 Melena; F03.93 Unspecified dementia, unspecified severity, with mood disturbance; D64.9 Anemia, unspecified; I10 Essential (primary) hypertension; F19.11 Other psychoactive substance abuse, in remission; I73.9 Peripheral vascular disease, unspecified; N32.0 Bladder-neck obstruction; N40.0 Benign prostatic hyperplasia without lower urinary tract symptoms; R53.81 Other malaise; E61.1 Iron deficiency; R26.9 Unspecified abnormalities of gait and mobility; I95.9 Hypotension, unspecified; F17.210 Nicotine dependence, cigarettes, uncomplicated; R53.83 Other fatigue; R60.0 Localized edema; R63.0 Anorexia; L84 Corns and callosities; Z79.82 Long term (current) use of aspirin; Z93.3 Colostomy status; Z79.899 Other long term (current) drug therapy
CPT/HCPCS: 36415; 71045; 74018; 74176; 77001; 80048; 80053; 82306; 82607; 82728; 82746; 83540; 83550; 83735; 84100; 84134; 84443; 85025; 87015; 87045; 87177; 87209; 87427; 87449; 89055; 92523; 92610; 93923; 97110; 97116; 97162; 97166; 97530; 97535; A4606; C1725; J1308; J1650; J2003; J2270; J3475; J3490; J7050; J7060